=== PATIENT | female | born 1975 | race Caucasian/White ===

== ENCOUNTER 2018-01-11 12:02 | Inpatient (IN) ==
[2018-01-11] MEDS ORDERED: 0.9 % Sodium Chloride 1,000 ML IVC ONE (12:29)
[2018-01-11 12:38] LABS: Bilirubin,Urine Negative (Negative); Blood,Urine Large (Negative); Clarity,Urine Clear (Clear); Color,Urine Yellow (Yellow); Glucose,Urine (UA) Normal (Normal); Ketones,Urine Negative (Negative); Leukocyte Esterase,Urine Trace (Negative); Nitrite,Urine Negative (Negative); Protein,Urine Negative (Neg-Trace); Specific Gravity,Urine 1.006 (1.010-1.025); Urobilinogen,Urine Normal (Normal)
[2018-01-11 12:42] LABS: Bacteria,Urine None Seen per hpf (None-Few); Hyaline Casts,Urine None Seen per lpf (None-Few); RBC,Urine 15-30 per hpf (0-3); Squamous Epithelial Cell,Urine Moderate per lpf (None-Few)
[2018-01-11 12:51] LABS: Amphetamine Screen,Urine Negative ng/mL (Cutoff=1000); Barbiturate Screen,Urine Negative ng/mL (Cutoff=200); Benzodiazepines Screen,Urine Negative ng/mL (Cutoff=200); Cannabinoid Screen,Urine Negative ng/mL (Cutoff = 50); Cocaine Screen,Urine Negative ng/mL (Cutoff= 300); Opiate Screen,Urine Negative ng/mL (Cutoff=300); Phencyclidine Screen,Urine Negative ng/mL (Cutoff=25)
[2018-01-11 13:07] LABS: Basophils # 0.1 K/mcL (0.0-0.2); Basophils % 1.5 %; Eosinophils % 0.7 %; Hematocrit 47.2 % (35.3-44.9); Hemoglobin 15.5 g/dL (11.5-15.4); Immature Granulocytes % 0.5 % (0-4); Lymphocytes # 1.4 K/mcL (0.6-4.6); Lymphocytes % 33.3 %; Mean Corpuscular HGB Conc 32.8 g/dL (31.6-35.5); Mean Corpuscular Hemoglobin 30.5 pg (28.0-33.3); Mean Corpuscular Volume 92.9 fL (83.0-100.0); Mean Platelet Volume 10.1 fL (9.4-12.4); Monocytes # 0.3 K/mcL (0.0-1.3); Monocytes % 8.3 %; Neutrophils # 2.3 K/mcL (1.6-8.9); Platelet Count 281 K/mcL (140-400); Red Blood Count 5.08 M/mcL (3.82-4.97); Red Cell Distribution Width 12.9 % (11.5-14.5); Segmented Neutrophils % 55.7 %
[2018-01-11] MEDS ORDERED: Sodium Bicarbonate 150 MEQ in D5% in Water 1,000 ML IVC SCH ×2 (13:15→20:33)
[2018-01-11 13:24] LABS: Acetaminophen < 1.0 mcg/mL (10-30); Alanine Aminotransferase 14 Units/L (7-52); Albumin/Globulin Ratio 1.8 (1.1-2.2); Alkaline Phosphatase 48 Units/L (34-104); Aspartate Amino Transferase 19 Units/L (13-39); BUN/Creatinine Ratio 8 (6-26); Bilirubin,Direct 0.1 mg/dL (0.0-0.2); Bilirubin,Indirect 0.1 mg/dL (0.0-1.2); Bilirubin,Total 0.2 mg/dL (0.3-1.0); Blood Urea Nitrogen 8 mg/dL (6-20); Calcium 10.4 mg/dL (8.6-10.3); Carbon Dioxide 26 mEq/L (23-29); Chloride 106 mEq/L (98-107); Ethanol < 10 mg/dL (0-10); Globulin 2.8 g/dL (2.4-3.5); Glucose 108 mg/dL (70-105); Osmolality,Calculated 293 (280-300); Sodium 142 mEq/L (136-145); Total Protein 7.8 g/dL (6.4-8.9); eGFR For Non-African Americans 59 (> 60)
[2018-01-11 13:26] LABS: Salicylate 68.8 mg/dL (15.0-30.0)
[2018-01-11 14:21] LABS: ABG Base Excess -1 mEq/L (-2 to 3); ABG HCO3 23 mEq/L (21-27); ABG Oxygen Saturation 99 % (95-98); ABG PCO2 33 mmHg (35-45); ABG PH 7.45 pH Units (7.32-7.45); ABG PO2 122 mmHg (85-104); ABG TCO2 24 mEq/L (20-26)
[2018-01-11] MEDS ORDERED: *HR* Heparin 5,000 UNIT/ML VIAL ONE (14:30)
--- NOTE | 2018-01-11 14:33 | Emergency Department Note ---
Overdose - [facility] Narrative Medical decision making narrative: I spoke with poison control center after the initial evaluation recommended but activated charcoal. Salicylate level came back at 16.8 which is significantly elevated. Bicarbonate drip was initiated. Patient heart rate improved after IV fluids and then bicarbonate drip. ABG showed pH of 7.44. - Medical Records Medical records reviewed: Yes I reviewed the patient's medical records. - Lab Data Lab results reviewed: Yes I reviewed the patient's lab results. Result diagrams: 01/11/18 12:48 01/11/18 12:48 Lab Results 01/11/18 01/11/18 01/11/18 Range/Units 12:30 12:31 12:48 WBC 4.1 L (4.3-11.1) K/mcL RBC 5.08 H (3.82-4.97) M/mcL Hgb 15.5 H (11.5-15.4) g/dL Hct 47.2 H (35.3-44.9) % MCV 92.9 (83.0-100.0) fL MCH 30.5 (28.0-33.3) pg MCHC 32.8 (31.6-35.5) g/dL RDW 12.9 (11.5-14.5) % Plt Count 281 (140-400) K/mcL MPV 10.1 (9.4-12.4) fL Immature Gran % 0.5 (0-4) % Seg Neutrophils % 55.7 % Lymphocytes % 33.3 % Monocytes % 8.3 % Eosinophils % 0.7 % Basophils % 1.5 % Neutrophils # 2.3 (1.6-8.9) K/mcL Lymphocytes # 1.4 (0.6-4.6) K/mcL Monocytes # 0.3 (0.0-1.3) K/mcL Eosinophils # 0.0 (0.0-0.6) K/mcL Basophils # 0.1 (0.0-0.2) K/mcL ABG pH (7.32-7.45) pH Units ABG pCO2 (35-45) mmHg ABG pO2 (85-104) mmHg ABG HCO3 (21-27) mEq/L ABG Total CO2 (20-26) mEq/L ABG O2 Saturation (95-98) % ABG Base Excess (-2 to 3) mEq/L O2 Delivery Device Inspired O2 (1-15=lpm [id number]=%) Sodium (136-145) mEq/L Potassium (3.5-5.1) mEq/L Chloride (98-107) mEq/L Carbon Dioxide (23-29) mEq/L BUN (6-20) mg/dL Creatinine (0.60-1.20) mg/dL Est GFR ( Amer) (> 60) Est GFR (Non-Af Amer) (> 60) BUN/Creatinine Ratio (6-26) Glucose (70-105) mg/dL Calculated Osmolality (280-300) Lactic Acid (0.5-2.2) mmol/L Calcium (8.6-10.3) mg/dL Total Bilirubin (0.3-1.0) mg/dL Direct Bilirubin (0.0-0.2) mg/dL Indirect Bilirubin (0.0-1.2) mg/dL AST (13-39) Units/L ALT (7-52) Units/L Alkaline Phosphatase (34-104) Units/L Serum Total Protein (6.4-8.9) g/dL Albumin (3.5-5.7) g/dL Globulin (2.4-3.5) g/dL Albumin/Globulin Ratio (1.1-2.2) Urine Color Yellow (Yellow) Urine Clarity Clear (Clear) Urine pH 7.0 (5.0-8.0) pH Units Ur Specific [place] 1.006 L (1.010-1.025) Urine Protein Negative (Neg-Trace) mg/dL Urine Glucose (UA) Normal (Normal) mg/dL Urine Ketones Negative (Negative) mg/dL Urine Blood Large H (Negative) Urine Nitrite Negative (Negative) Urine Bilirubin Negative (Negative) Urine Urobilinogen Normal (Normal) mg/dL Ur Leukocyte Esterase Trace H (Negative) Urine Microscopic RBC 15-30 H (0-3) per hpf Urine Microscopic WBC 3-5 H (0-3) per hpf Ur Squamous Epith Cells Moderate H (None-Few) per lpf Urine Bacteria None Seen (None-Few) per hpf Hyaline Casts None Seen (None-Few) per lpf Salicylates (15.0-30.0) mg/dL Urine Opiates Screen Negative (Eavzsq=846) ng/mL Acetaminophen (10-30) mcg/mL Ur Barbiturates Screen Negative (Vqwkfa=307) ng/mL Ur Phencyclidine Scrn Negative (Cutoff=25) ng/mL Ur Amphetamines Screen Negative (Yqgpjy=8079) ng/mL U Benzodiazepines Scrn Negative (Umtaqh=347) ng/mL Urine Cocaine Screen Negative (Cutoff= 300) ng/mL U Marijuana (THC) Screen Negative (Cutoff = 50) ng/mL Ethyl Alcohol (0-10) mg/dL 01/11/18 01/11/18 01/11/18 Range/Units 12:48 12:48 14:17 WBC (4.3-11.1) K/mcL RBC (3.82-4.97) M/mcL Hgb (11.5-15.4) g/dL Hct (35.3-44.9) % MCV (83.0-100.0) fL MCH (28.0-33.3) pg MCHC (31.6-35.5) g/dL RDW (11.5-14.5) % Plt Count (140-400) K/mcL MPV (9.4-12.4) fL Immature Gran % (0-4) % Seg Neutrophils % % Lymphocytes % % Monocytes % % Eosinophils % % Basophils % % Neutrophils # (1.6-8.9) K/mcL Lymphocytes # (0.6-4.6) K/mcL Monocytes # (0.0-1.3) K/mcL Eosinophils # (0.0-0.6) K/mcL Basophils # (0.0-0.2) K/mcL ABG pH 7.45 (7.32-7.45) pH Units ABG pCO2 33 L (35-45) mmHg ABG pO2 122 H (85-104) mmHg ABG HCO3 23 (21-27) mEq/L ABG Total CO2 24 (20-26) mEq/L ABG O2 Saturation 99 H (95-98) % ABG Base Excess -1 (-2 to 3) mEq/L O2 Delivery Device Room Air Inspired O2 21.0 (1-15=lpm [id number]=%) Sodium 142 (136-145) mEq/L Potassium 4.0 (3.5-5.1) mEq/L Chloride 106 (98-107) mEq/L Carbon Dioxide 26 (23-29) mEq/L BUN 8 (6-20) mg/dL Creatinine 1.03 (0.60-1.20) mg/dL Est GFR ( Amer) > 60 (> 60) Est GFR (Non-Af Amer) 59 L (> 60) BUN/Creatinine Ratio 8 (6-26) Glucose 108 H (70-105) mg/dL Calculated Osmolality 293 (280-300) Lactic Acid 0.9 (0.5-2.2) mmol/L Calcium 10.4 H (8.6-10.3) mg/dL Total Bilirubin 0.2 L (0.3-1.0) mg/dL Direct Bilirubin 0.1 (0.0-0.2) mg/dL Indirect Bilirubin 0.1 (0.0-1.2) mg/dL AST 19 (13-39) Units/L ALT 14 (7-52) Units/L Alkaline Phosphatase 48 (34-104) Units/L Serum Total Protein 7.8 (6.4-8.9) g/dL Albumin 5.0 (3.5-5.7) g/dL Globulin 2.8 (2.4-3.5) g/dL Albumin/Globulin Ratio 1.8 (1.1-2.2) Urine Color (Yellow) Urine Clarity (Clear) Urine pH (5.0-8.0) pH Units Ur Specific [place] (1.010-1.025) Urine Protein (Neg-Trace) mg/dL Urine Glucose (UA) (Normal) mg/dL Urine Ketones (Negative) mg/dL Urine Blood (Negative) Urine Nitrite (Negative) Urine Bilirubin (Negative) Urine Urobilinogen (Normal) mg/dL Ur Leukocyte Esterase (Negative) Urine Microscopic RBC (0-3) per hpf Urine Microscopic WBC (0-3) per hpf Ur Squamous Epith Cells (None-Few) per lpf Urine Bacteria (None-Few) per hpf Hyaline Casts (None-Few) per lpf Salicylates 68.8 H* (15.0-30.0) mg/dL Urine Opiates Screen (Bfhwpx=694) ng/mL Acetaminophen < 1.0 L (10-30) mcg/mL Ur Barbiturates Screen (Scfcda=399) ng/mL Ur Phencyclidine Scrn (Cutoff=25) ng/mL Ur Amphetamines Screen (Nhcryk=6900) ng/mL U Benzodiazepines Scrn (Jhhvgo=586) ng/mL Urine Cocaine Screen (Cutoff= 300) ng/mL U Marijuana (THC) Screen (Cutoff = 50) ng/mL Ethyl Alcohol < 10 (0-10) mg/dL - Radiology Data Radiology results reviewed: Yes I reviewed the patient's radiology results. Overdose HPI - General Chief Complaint: ED Overdose Stated Complaint: OD Time Seen by Provider: 01/11/18 12:25 Source: patient, family Mode of arrival: ambulatory Limitations: no limitations Nursing Notes Reviewed: Yes Vital Signs Reviewed: Yes - History of Present Illness HPI Narrative: 42-year-old female presents emergency department after a suicide attempt. Patient states she is in the middle of a separation/divorce with her , she found tapes of him performing intercourse with a different female, she watch those this morning and became suicidal. She took 100 pills of 325 mg aspirin and 10 pills of Ambien at unknown strength. This occurred about 4 hours prior to arrival. Patient has tinnitus. She has tachycardia on initial evaluation. She has not vomited prior to arrival. Patient states it was a mistake and she was just caught up in the moment at the time. - Related Data Allergies Allergy/AdvReac Type Severity Reaction Status Date / Time No Known Allergies Allergy Verified 01/11/18 12:03 All systems ED: reviewed and negative except as stated. Review of Systems: As Per HPI Constitutional: Denies: fever, chills, weakness ENT ED: Reports: hearing loss Cardiovascular: Reports: palpitations. Denies: chest pain Respiratory: Denies: cough, dyspnea, wheezes Gastrointestinal: Reports: abdominal pain, nausea. Denies: vomiting Genitourinary: Denies: urgency Musculoskeletal: Denies: back pain Integumentary: Denies: rash, abrasion Neurological: Reports: headache. Denies: weakness Past Medical History - Past Medical History Attestation: Yes The following information was validated with the patient. Source: patient Medical history: Reports: no medical history Psychiatric history: Reports: depression - Social History Smoking Status: Never smoker Alcohol use: Reports: occasionally Drug use: Reports: none Physical Exam General: Alert and in no acute distress Skin: Warm, dry, intact Head: Normocephalic and atraumatic Neck: Supple, trachea midline and no tenderness Cardiovascular: Tachycardia, no murmur, normal perfusion Respiratory: CTAB, no wheezing, cough, or respiratory distress Musculoskeletal: Normal strength, no tenderness, swelling or deformity GI: Soft, mild generalized tenderness to palpation without evidence of rigidity , guarding, or rebound., nondistended. Bowel sounds present Neuro: A&O to person, place, time and situation. No focal deficits noted on exam Psychiatric: cooperative and appropriate mood and affect. - General Limitations: no limitations General appearance: alert Course Vital Signs Temperature 97.8 F 01/11/18 12:03 Pulse Rate 121 01/11/18 12:03 Respiratory Rate 16 01/11/18 12:03 Blood Pressure 140/91 01/11/18 12:03 O2 Sat by Pulse Oximetry 99 01/11/18 12:03 Temperature 97.8 F 01/11/18 12:03 Pulse Rate 105 01/11/18 14:00 Respiratory Rate 20 01/11/18 14:00 Blood Pressure 116/77 01/11/18 14:00 O2 Sat by Pulse Oximetry 100 01/11/18 14:00 Oxygen Delivery Oxygen Delivery Nasal Cannula Disposition Clinical Impression: Intentional aspirin overdose Qualifiers: Encounter type: initial encounter Qualified Code(s): T39.012A - Poisoning by aspirin, intentional self-harm, initial encounter Suicidal overdose Qualifiers: Encounter type: initial encounter Qualified Code(s): T50.902A - Poisoning by unspecified drugs, medicaments and biological substances, intentional self-harm , initial encounter Disposition: Admitted As Inpatient Referrals: Sukhwinder Loco DO [Primary Care Provider] - Time of Disposition: 13:00
--- NOTE | 2018-01-11 15:15 | Nephrology Consult Note ---
Date of Encounter: 01/11/18 Time of Encounter: 15:13 Assessment and Plan (1) Intentional aspirin overdose Current Visit: Yes Status: Acute ED team working with Poison Control Will need urgent dialysis if salicylate level goes above 80. Recommend frequent salicylate/BMPs such as every 2 hours or as recommended by Poison Control center Qualifiers: Encounter type: initial encounter Qualified Code(s): T39.012A - Poisoning by aspirin, intentional self-harm, initial encounter History of Present Illness - Reason for Consult Consult date: 01/11/18 - Chief Complaint ASA overdose, suicide attempt - History of Present Illness Ms Ken is a 42-year-old female who presents emergency department after a suicide attempt. Per ED record patient states she is in the middle of a separation/divorce with her , she found tapes of him performing intercourse with a different female, she watch those this morning and became suicidal. She took 100 pills of 325 mg aspirin and 10 pills of Ambien at unknown strength. This occurred about 4 hours prior to arrival. Patient has tinnitus. She has tachycardia on initial evaluation. She has not vomited prior to arrival. Patient states it was a mistake and she was just caught up in the moment at the time. Salicylate level 68.8, SCr 1.03, GFR 59. Patient was seen and examined in the ED. She is AAO and pleasant. Past Med Surg Social Fam HX - Past Medical History Medical history: no medical history Psychiatric history: depression - Social History Smoking Status: Never smoker Alcohol use: occasionally Drug use: none Medications and Allergies Metformin HCl [Metformin HCl ER] 500 mg PO QPM 01/11/18 [History] Naltrexone HCl/Bupropion HCl [Contrave ER 8-90 mg Tablet] 1 each PO DAILY [History] Sertraline [Zoloft] 50 mg PO DAILY 01/11/18 [History] Suvorexant [Belsomra] 20 mg PO HS 01/11/18 [History] Tizanidine HCl [Tizanidine HCl] 4 mg PO TID PRN 01/11/18 [History] 3 Allergy/AdvReac Type Severity Reaction Status Date / Time No Known Allergies Allergy Verified 01/11/18 12:03 Review of Systems All Systems: reviewed and no additional remarkable complaints except as stated Constitutional: no fever(s) Cardiovascular: rapid heart rate, no chest pain, no dyspnea Respiratory: no wheezing Gastrointestinal: no vomiting Neurological: no confusion Exam - Vital Signs Vital signs: Initial Vital Signs Temp Pulse Resp BP Pulse Ox 97.8 F 121 16 140/91 99 01/11/18 12:03 01/11/18 12:03 01/11/18 12:03 01/11/18 12:03 01/11/18 12:03 Vital Signs - Last 8 Hours Temp Pulse Resp BP Pulse Ox 01/11/18 14:00 105 20 116/77 100 01/11/18 13:15 116 22 126/90 98 01/11/18 13:07 98 01/11/18 12:50 115 22 120/88 97 01/11/18 12:03 97.8 F 121 16 140/91 99 Intake and Output 01/10/18 01/11/18 01/11/18 23:59 07:59 15:59 Intake Total 1000 / 1000 Balance 1000 / 1000 Intake: IV Fluids 1000 / 1000 0.9 % Sodium Chloride 1,000 ML 1000 / 1000 @ 3750 mls/hr IVC .Q16M ONE Rx# :[id number] Other: Weight 52.163 kg Patient Weight 01/11/18 23:59 Weight 52.163 kg - General Appearance General appearance: well-developed, well-nourished EENT: ATNC, mucous membranes moist, hearing intact, vision intact Neck: supple Respiratory: clear Cardiology: no edema, normal S1, normal S2 Gastrointestinal: no tenderness, no guarding Integumentary: warm and dry Neurologic: alert and oriented x3 Psychiatric: mood/affect appropriate, cooperative Results - Lab Results 01/11/18 12:48 01/11/18 12:48 Most recent lab results ABG pH 7.45 pH Units (7.32-7.45) 01/11/18 14:17 ABG pCO2 33 mmHg (35-45) L 01/11/18 14:17 ABG pO2 122 mmHg (85-104) H 01/11/18 14:17 ABG HCO3 23 mEq/L (21-27) 01/11/18 14:17 ABG O2 Saturation 99 % (95-98) H 01/11/18 14:17 Calcium 10.4 mg/dL (8.6-10.3) H 01/11/18 12:48 Consult Discharge Plan - Plan Referrals: Sukhwinder Loco DO [Primary Care Provider] -
--- NOTE | 2018-01-11 15:49 | Internal Med History&Physical ---
Date of Encounter: 01/11/18 Time of Encounter: 15:45 Assessment and Plan (1) Depression Current visit: Yes Status: Chronic Chronic resume home medication Qualifiers: Depression Type: major depressive disorder Major depression recurrence: single episode Active/Remission status: remission status unspecified Qualified Code(s): F32.9 - Major depressive disorder, single episode, unspecified (2) Intentional aspirin overdose Current visit: Yes Status: Acute Aspirin overdose with intention of suicide patient had been seen and being followed by nephrology aspirin level PRESENT at 68 patient is awake alert ABG is normal Qualifiers: Encounter type: initial encounter Qualified Code(s): T39.012A - Poisoning by aspirin, intentional self-harm, initial encounter (3) Suicidal behavior with attempted self-injury Current visit: Yes Status: Acute We will consult psych electively see patient after medically cleared Internal Medicine - H&P: HPI Chief complaint: sapirin overdose/suicide attempt Admitted From: Emergency Dept Plans for Post Hospital Care: Home History of present illness: Ms. Ken is a 42 year old female Patient with history of depression no other significant medical problems patient apparently going through a divorce and separation from the . Apparently found some tapes involving her and another woman decided to commit suicide , took 100 pills of aspirin 325 and 10.pills of ambien . About 4 hours later come to the emergency room. Patient was having some ringing in her ears she is awake and alert aspirin level is 68 which is twice the upper limit of normal nephrology has been consult patient has a central line placed in anticipation of ASA increased elevation Past Med Surg Social Fam HX - Past Medical History Medical history: no medical history Psychiatric history: depression - Social History Smoking Status: Never smoker Alcohol use: occasionally Drug use: none Internal Medicine - H&P: Meds Metformin HCl [Metformin HCl ER] 500 mg PO QPM 01/11/18 [History] Naltrexone HCl/Bupropion HCl [Contrave ER 8-90 mg Tablet] 1 each PO DAILY [History] Sertraline [Zoloft] 50 mg PO DAILY 01/11/18 [History] Suvorexant [Belsomra] 20 mg PO HS 01/11/18 [History] Tizanidine HCl [Tizanidine HCl] 4 mg PO TID PRN 01/11/18 [History] 3 Allergy/AdvReac Type Severity Reaction Status Date / Time No Known Allergies Allergy Verified 01/11/18 12:03 All Systems PM: A 10-system review of systems was performed and is negative for pertinent findings except as documented above in the HPI. - Constitutional Constitutional: no chills, no fever(s), no night sweats - EENT Eyes: no change in vision, no discharge, no pain, no photophobia Ears: as per HPI, tinnitus, no ear discharge, no ear pain Nose, mouth and throat: no dysphagia, no nasal discharge, no neck pain, no sore throat - Cardiovascular Cardiovascular ROS IM: no chest pain, no diaphoresis, no dyspnea, no lightheadedness, no palpitations, no syncope - Respiratory Respiratory: no cough, no dyspnea, no wheezing, no excessive phlegm production - Gastrointestinal Gastrointestinal: no abdominal pain, no diarrhea, no hematemesis, no hematochezia, no melena, no nausea, no vomiting - Genitourinary Genitourinary: no change in urinary stream, no dysuria, no flank pain, no hematuria - Musculoskeletal Musculoskeletal ROS IM: no numbness, no tingling - Integumentary Integumentary IM: no rash, no unusual bruising - Neurological Neurological ROS: no confusion, no convulsions, no focal weakness, no numbness, no tingling, no tremor(s) - Constitutional Vitals: Temp Pulse Resp BP Pulse Ox 97.8 F 107 20 103/81 97 01/11/18 12:03 01/11/18 15:31 01/11/18 15:31 01/11/18 15:31 01/11/18 15:31 - Head Head exam: Present: atraumatic, normocephalic - Eye Eye exam: Present: PERRL, conjuntiva pink, sclera anicteric Pupils: Present: PERRL - Neck Neck exam general surgery: Present: supple, trachea midline. Absent: lymphadenopathy - Respiratory Respiratory exam: Present: CTAB. Absent: accessory muscle use, rales, rhonchi, wheezes - Cardiovascular Cardiovascular exam: Present: RRR, +S1, +S2. Absent: diastolic murmur, gallop, rubs, systolic murmur - GI/Abdominal GI/Abdominal exam: Present: normal bowel sounds, soft, no peritoneal signs. Absent: distended, tenderness - Extremities Exam Extremities exam: Present: warm, radial pulses palpable and symmetrical. Absent : calf tenderness, cyanotic, pedal edema - Neurological Exam Neurological exam: Present: CN II-XII intact, oriented X3, no focal deficits. Absent: pronater drift, facial droop, speech deficit - Skin Skin exam: Present: dry, intact Internal Med - H&P Results - Labs CBC & Chem 7: 01/11/18 12:48 01/11/18 12:48 Labs: Short CBC 01/11/18 Range/Units 12:48 WBC 4.1 L (4.3-11.1) K/mcL Hgb 15.5 H (11.5-15.4) g/dL Hct 47.2 H (35.3-44.9) % Plt Count 281 (140-400) K/mcL Neutrophils # 2.3 (1.6-8.9) K/mcL BMP 01/11/18 12:48 Sodium 142 Potassium 4.0 Chloride 106 Carbon Dioxide 26 BUN 8 Creatinine 1.03 Glucose 108 H Calcium 10.4 H Liver Function 01/11/18 Range/Units 12:48 Total Bilirubin 0.2 L (0.3-1.0) mg/dL Direct Bilirubin 0.1 (0.0-0.2) mg/dL AST 19 (13-39) Units/L ALT 14 (7-52) Units/L Alkaline Phosphatase 48 (34-104) Units/L Albumin 5.0 (3.5-5.7) g/dL Urine 01/11/18 Range/Units 12:30 Urine Color Yellow (Yellow) Urine Clarity Clear (Clear) Urine pH 7.0 (5.0-8.0) pH Units Ur Specific [place] 1.006 L (1.010-1.025) Urine Protein Negative (Neg-Trace) mg/dL Urine Glucose (UA) Normal (Normal) mg/dL - ABG Interpretation ABG results: 01/11/18 14:17 ABG pH 7.45 ABG pCO2 33 L ABG pO2 122 H ABG HCO3 23 ABG Total CO2 24 ABG O2 Saturation 99 H ABG Base Excess -1 - Impressions ITS Impressions Guidance Needle Placement Ultrasound 01/11/18 00:00 IMPRESSION: Successful ultrasound guided non-tunneled catheter placement. D/ / Siddharth Barrett MD / Siddharth Barrett MD Interpreting Provider: Siddharth Barrett MD Insertion Non-Tunneled Catheter 01/11/18 00:00 IMPRESSION: This has been dictated D/ / Siddharth Barrett MD / Siddharth Barrett MD Interpreting Provider: Siddharth Barrett MD Chest X-Ray 01/11/18 12:29 IMPRESSION: 1. No acute cardiopulmonary disease. D/ / Wan Childs MD / Wan Childs MD Interpreting Provider: Wan Childs MD Chest X-Ray 01/11/18 14:35 IMPRESSION: No radiographic evidence of acute cardiopulmonary disease. Unremarkable temporary HD catheter positioning. No pneumothorax. D/ / Stone Noriega / Stone Noriega Interpreting Provider: Stone Noriega
[2018-01-11] MEDS ORDERED: Naloxone 0.4 MG/ML INJ IVP PRN (16:00)
[2018-01-11 17:14] LABS: BUN/Creatinine Ratio 8 (6-26); Blood Urea Nitrogen 8 mg/dL (6-20); Calcium 8.9 mg/dL (8.6-10.3); Carbon Dioxide 22 mEq/L (23-29); Chloride 110 mEq/L (98-107); Glucose 147 mg/dL (70-105); Osmolality,Calculated 299 (280-300); Potassium 3.9 mEq/L (3.5-5.1); Sodium 144 mEq/L (136-145); eGFR For Non-African Americans 60 (> 60)
[2018-01-11] MEDS: Ondansetron 4 MG/2 ML VIAL IVP SCH (22:54)
[2018-01-12] MEDS ORDERED: Ondansetron 4 MG/2 ML VIAL IVP SCH
[2018-01-12] MEDS: *HR* Enoxaparin 40 MG/0.4 ML SYRINGE SQ SCH (04:38)
[2018-01-12] MEDS: Ondansetron 4 MG/2 ML VIAL IVP SCH ×5 (04:38→21:34)
[2018-01-12] MEDS: Sodium Bicarbonate 150 MEQ in D5% in Water 1,000 ML IVC SCH ×3 (06:27→18:34)
[2018-01-12 06:48] LABS: Hematocrit 36.1 % (35.3-44.9); Mean Corpuscular HGB Conc 33.2 g/dL (31.6-35.5); Mean Corpuscular Hemoglobin 30.2 pg (28.0-33.3); Mean Corpuscular Volume 90.9 fL (83.0-100.0); Mean Platelet Volume 10.7 fL (9.4-12.4); Platelet Count 227 K/mcL (140-400); Red Blood Count 3.97 M/mcL (3.82-4.97)
[2018-01-12 09:24] LABS: Alanine Aminotransferase 17 Units/L (7-52); Albumin 3.7 g/dL (3.5-5.7); Albumin/Globulin Ratio 1.9 (1.1-2.2); Alkaline Phosphatase 35 Units/L (34-104); Aspartate Amino Transferase 22 Units/L (13-39); BUN/Creatinine Ratio 11 (6-26); Bilirubin,Total 0.2 mg/dL (0.3-1.0); Blood Urea Nitrogen 11 mg/dL (6-20); Calcium 8.1 mg/dL (8.6-10.3); Carbon Dioxide 30 mEq/L (23-29); Chloride 102 mEq/L (98-107); Glucose 112 mg/dL (70-105); Osmolality,Calculated 288 (280-300); Potassium 2.6 mEq/L (3.5-5.1); Sodium 139 mEq/L (136-145); Total Protein 5.7 g/dL (6.4-8.9); eGFR For Non-African Americans > 60 (> 60)
--- NOTE | 2018-01-12 11:12 | Internal Med Progress Note ---
Date of Encounter: 01/12/18 Time of Encounter: 11:09 - Assessment and plan (1) Intentional aspirin overdose Current Visit: Yes Status: Acute Assessment and plan: Currently stable Most recent salycilate level 31.5 - Per protocol: repeat Salycilate level, serial BMP, urine pH repeat. - Continue sodium bicarb drip - Nephrology following, recommendations appreciated. Qualifiers: Encounter type: initial encounter Qualified Code(s): T39.012A - Poisoning by aspirin, intentional self-harm, initial encounter (2) Hypokalemia Current Visit: Yes Status: Acute Assessment and plan: Replace (3) Depression Current Visit: Yes Status: Chronic Qualifiers: Depression Type: major depressive disorder Major depression recurrence: single episode Active/Remission status: remission status unspecified Qualified Code(s): F32.9 - Major depressive disorder, single episode, unspecified (4) Suicidal overdose Current Visit: Yes Status: Acute Assessment and plan: Psychiatry following. Discussed case with Psychiatry attending. Patient likely will be discharged to once medically stable. Likely this evening or tomorrow AM. I would like to see potassium increased prior to transfer. Qualifiers: Encounter type: initial encounter Qualified Code(s): T50.902A - Poisoning by unspecified drugs, medicaments and biological substances, intentional self- harm, initial encounter - Subjective Interval history: No events overnight, no complaints. - Constitutional Vitals: Temp Pulse Resp BP Pulse Ox 97.8 F 87 14 99/68 99 01/12/18 07:45 01/12/18 07:45 01/12/18 07:45 01/12/18 07:45 01/12/18 07:45 - Head Head exam: Present: atraumatic, normocephalic - Eye Eye exam: Present: PERRL, conjuntiva pink, sclera anicteric Pupils: Present: PERRL - Neck Neck exam general surgery: Present: supple, trachea midline. Absent: lymphadenopathy - Respiratory Respiratory exam: Present: CTAB. Absent: accessory muscle use, rales, rhonchi, wheezes - Cardiovascular Cardiovascular exam: Present: RRR, +S1, +S2. Absent: diastolic murmur, gallop, rubs, systolic murmur - GI/Abdominal GI/Abdominal exam: Present: normal bowel sounds, soft, no peritoneal signs. Absent: distended, tenderness - Extremities Exam Extremities exam: Present: warm, radial pulses palpable and symmetrical. Absent : calf tenderness, cyanotic, pedal edema - Neurological Exam Neurological exam: Present: CN II-XII intact, oriented X3, no focal deficits. Absent: pronater drift, facial droop, speech deficit - Skin Skin exam: Present: dry, intact Internal Medicine: Result - Labs CBC & Chem 7: 01/12/18 06:02 01/12/18 06:02 Labs: Short CBC 01/12/18 Range/Units 06:02 WBC 8.3 D (4.3-11.1) K/mcL Hgb 12.0 D (11.5-15.4) g/dL Hct 36.1 (35.3-44.9) % Plt Count 227 (140-400) K/mcL BMP 01/11/18 01/12/18 22:59 06:02 Sodium 139 Potassium 3.4 L 2.6 L Chloride 102 Carbon Dioxide 30 H BUN 11 Creatinine 1.01 Glucose 112 H Calcium 8.1 L Liver Function 01/12/18 Range/Units 06:02 Total Bilirubin 0.2 L (0.3-1.0) mg/dL AST 22 (13-39) Units/L ALT 17 (7-52) Units/L Alkaline Phosphatase 35 (34-104) Units/L Albumin 3.7 (3.5-5.7) g/dL - ABG Interpretation ABG results: ABG ABG pH 7.45 pH Units (7.32-7.45) 01/11/18 14:17 ABG pCO2 33 mmHg (35-45) L 01/11/18 14:17 ABG pO2 122 mmHg (85-104) H 01/11/18 14:17 ABG O2 Saturation 99 % (95-98) H 01/11/18 14:17 Consult Discharge Plan - Plan Referrals: Sukhwinder Loco DO [Primary Care Provider] -
--- NOTE | 2018-01-12 11:39 | Consult Note ---
Date of Encounter: 01/12/18 Time of Encounter: 10:10 Assessment & Recommendation (1) Depression Current visit: Yes Status: Chronic Assessment & Recommendation: Patient admits to it intentionally taking pills but minimizes lethality of attempt. [place] slip filled out. Family very concerned about patient's behavior and possibility of her hurting herself again. We will admit to 1 a for psychiatric stabilization once medically stable. Continue one-to-one observation until patient is transferred. Qualifiers: Depression Type: major depressive disorder Major depression recurrence: single episode Active/Remission status: remission status unspecified Qualified Code(s): F32.9 - Major depressive disorder, single episode, unspecified (2) Intentional aspirin overdose Current visit: Yes Status: Acute Qualifiers: Encounter type: initial encounter Qualified Code(s): T39.012A - Poisoning by aspirin, intentional self-harm, initial encounter History of Present Illness Patient: new to practice Requesting Physician: Irasema Frederick MD Reason for consult: Suicide attempt History of present illness: Ms. Ken is a 42 year old female who presented to the hospital after an intentional overdose on medications after an argument with her . On interview, patient is very embarrassed and upset about her actions. She states that she and her were and are trying to work on the relationship however she is also planning to proceed with the dissolution of their marriage to start with a "clean slate." While she was cleaning out the house she found the phone that her use to communicate with his mistress. She apparently spent time trying to figure out how to return videos and data images that have been deleted. She watched videos of her with his lover. This caused her to be very emotionally distraught and upset and she got into an argument with her . She refused to go to marriage counseling. At some point she decided to take pills. Patient denied this being a suicide attempt and states that she just wanted to take enough medication to "sleep it off." She initially denies depressed mood but then admits to taking Zoloft and Wellbutrin for about 20 years. She thinks her medications are helpful to her stress level has been increased lately because of her marital issues. Patient states she is willing to go to counseling and would prefer not to be hospitalized. She denies history of psychosis or manic symptoms. PCP is prescribing her current psych meds. She denies tobacco or illicit drug use and only very rarely uses alcohol. 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 Spoke with patient's family who states that patient is minimizing her recent overdose. Both her and her sister and mom report that she verbalized suicidal ideation to them over the past few weeks. They are concerned that if she was to leave the hospital she may in fact try to hurt herself again. They really want her to get help and her concern that she will follow up with a therapist or doctor when she leaves the hospital. CC: Irasema Frederick MD Past Med Surg Social Fam HX - Past Medical History Medical history: no medical history - Past Psychiatric History Psychiatric history: Reports: anxiety, depression. Denies: prior suicide attempt, previous psychiatric hospitalization Past psychiatric history details: On Wellbutrin and Zoloft for a long time. Family psychiatric history: Yes (Sr. also has anxiety issues.) Family History of Suicide: None - Social History Smoking Status: Never smoker Alcohol use: occasionally Drug use: none Occupational status: employed Current living situation: Home, With Family - Family History Father Living Status: Still Living Hx Family Cardiac Disorders: Yes (HTN,) Medications & Allergies Metformin HCl [Metformin HCl ER] 500 mg PO QPM 01/11/18 [History] Naltrexone HCl/Bupropion HCl [Contrave ER 8-90 mg Tablet] 1 each PO DAILY [History] Sertraline [Zoloft] 50 mg PO DAILY 01/11/18 [History] Suvorexant [Belsomra] 20 mg PO HS 01/11/18 [History] Tizanidine HCl [Tizanidine HCl] 4 mg PO TID PRN 01/11/18 [History] 3 Allergy/AdvReac Type Severity Reaction Status Date / Time No Known Allergies Allergy Verified 01/11/18 12:03 Review of Systems Constitutional: Denies: fever, chills, weakness, weight change Eyes: Denies: eye pain, vision change Ears, Nose, Throat: Denies: ear pain, throat pain, dental pain, hearing loss, congestion Cardiovascular: Denies: chest pain, palpitations, dyspnea on exertion Respiratory: Denies: cough, dyspnea, wheezes Gastrointestinal: Denies: abdominal pain, nausea, vomiting, diarrhea, constipation Genitourinary male: Denies: urgency, dysuria, frequency, genital lesions Genitourinary female: Denies: urgency, dysuria, frequency, abnormal menses, dyspareunia Musculoskeletal: Denies: joint swelling, joint pain Integumentary: Denies: rash, lesions, pruritus Neurological: Denies: headache, weakness, numbness, memory loss Psychiatric: Reports: depression, anxiety, abnormal sleep pattern, suicidal ideation, anhedonia, difficulty concentrating, hopelessness, irritability, mood swings, panic attacks Endocrine: Denies: fatigue, heat or cold intolerance Hematologic/Lymphatic: Denies: easy bruising, lymphadenopathy Allergic/Immunologic: Denies: urticaria, itchy eyes Mental Status Exam Patient orientation: Yes Person, Yes Time, Yes Place Level of alertness: Alert Patient appearance: Appropriate Behavior: calm, guarded Psychomotor activity: Normal Eye contact: Minimal Contact Mood description: Euthymic/stable Affect description: tearful, dysphoric Speech pattern: Normal rate, Normal rhythm, Normal tone Speech volume: Normal Thought process: Intact, Linear, Goal Oriented Thought content: No Suicidal ideation, No Homicidal ideation Perceptual disturbances: No Auditory hallucinations, No Visual hallucinations Attention span: Capable of Focused Attention Memory description: Grossly Intact Patient reliability: Questionable Historian Intelligence estimate: Average Judgment: Limited Insight: Minimal Results - Vital Signs Vital signs: Temp Pulse Resp BP Pulse Ox 97.8 F 87 14 99/68 99 01/12/18 07:45 01/12/18 07:45 01/12/18 07:45 01/12/18 07:45 01/12/18 07:45 - Labs Labs: Laboratory Last Values WBC 8.3 K/mcL (4.3-11.1) D 01/12/18 06:02 RBC 3.97 M/mcL (3.82-4.97) 01/12/18 06:02 Hgb 12.0 g/dL (11.5-15.4) D 01/12/18 06:02 Hct 36.1 % (35.3-44.9) 01/12/18 06:02 MCV 90.9 fL (83.0-100.0) 01/12/18 06:02 MCH 30.2 pg (28.0-33.3) 01/12/18 06:02 MCHC 33.2 g/dL (31.6-35.5) 01/12/18 06:02 RDW 13.0 % (11.5-14.5) 01/12/18 06:02 Plt Count 227 K/mcL (140-400) 01/12/18 06:02 MPV 10.7 fL (9.4-12.4) 01/12/18 06:02 Immature Gran % 0.5 % (0-4) 01/11/18 12:48 Seg Neutrophils % 55.7 % 01/11/18 12:48 Lymphocytes % 33.3 % 01/11/18 12:48 Monocytes % 8.3 % 01/11/18 12:48 Eosinophils % 0.7 % 01/11/18 12:48 Basophils % 1.5 % 01/11/18 12:48 Neutrophils # 2.3 K/mcL (1.6-8.9) 01/11/18 12:48 Lymphocytes # 1.4 K/mcL (0.6-4.6) 01/11/18 12:48 Monocytes # 0.3 K/mcL (0.0-1.3) 01/11/18 12:48 Eosinophils # 0.0 K/mcL (0.0-0.6) 01/11/18 12:48 Basophils # 0.1 K/mcL (0.0-0.2) 01/11/18 12:48 ABG pH 7.45 pH Units (7.32-7.45) 01/11/18 14:17 ABG pCO2 33 mmHg (35-45) L 01/11/18 14:17 ABG pO2 122 mmHg (85-104) H 01/11/18 14:17 ABG HCO3 23 mEq/L (21-27) 01/11/18 14:17 ABG Total CO2 24 mEq/L (20-26) 01/11/18 14:17 ABG O2 Saturation 99 % (95-98) H 01/11/18 14:17 ABG Base Excess -1 mEq/L (-2 to 3) 01/11/18 14:17 O2 Delivery Device Room Air 01/11/18 14:17 Inspired O2 21.0 (1-15=lpm [id number]%) 01/11/18 14:17 Sodium 139 mEq/L (136-145) 01/12/18 06:02 Potassium 2.6 mEq/L (3.5-5.1) L 01/12/18 06:02 Chloride 102 mEq/L (98-107) 01/12/18 06:02 Carbon Dioxide 30 mEq/L (23-29) H 01/12/18 06:02 BUN 11 mg/dL (6-20) 01/12/18 06:02 Creatinine 1.01 mg/dL (0.60-1.20) 01/12/18 06:02 Est GFR ( Amer) > 60 (> 60) 01/12/18 06:02 Est GFR (Non-Af Amer) > 60 (> 60) 01/12/18 06:02 BUN/Creatinine Ratio 11 (6-26) 01/12/18 06:02 Glucose 112 mg/dL (70-105) H 01/12/18 06:02 POC Glucose 122 (58-89) H 01/11/18 21:41 Calculated Osmolality 288 (280-300) 01/12/18 06:02 Lactic Acid 0.9 mmol/L (0.5-2.2) 01/11/18 12:48 Calcium 8.1 mg/dL (8.6-10.3) L 01/12/18 06:02 Total Bilirubin 0.2 mg/dL (0.3-1.0) L 01/12/18 06:02 Direct Bilirubin 0.1 mg/dL (0.0-0.2) 01/11/18 12:48 Indirect Bilirubin 0.1 mg/dL (0.0-1.2) 01/11/18 12:48 AST 22 Units/L (13-39) 01/12/18 06:02 ALT 17 Units/L (7-52) 01/12/18 06:02 Alkaline Phosphatase 35 Units/L (34-104) 01/12/18 06:02 Serum Total Protein 5.7 g/dL (6.4-8.9) L 01/12/18 06:02 Albumin 3.7 g/dL (3.5-5.7) 01/12/18 06:02 Globulin 2.0 g/dL (2.4-3.5) L 01/12/18 06:02 Albumin/Globulin Ratio 1.9 (1.1-2.2) 01/12/18 06:02 Urine Color Yellow (Yellow) 01/11/18 12:30 Urine Clarity Clear (Clear) 01/11/18 12:30 Urine pH 7.0 pH Units (5.0-8.0) 01/11/18 12:30 Ur Specific [place] 1.006 (1.010-1.025) L 01/11/18 12:30 Urine Protein Negative mg/dL (Neg-Trace) 01/11/18 12:30 Urine Glucose (UA) Normal mg/dL (Normal) 01/11/18 12:30 Urine Ketones Negative mg/dL (Negative) 01/11/18 12:30 Urine Blood Large (Negative) H 01/11/18 12:30 Urine Nitrite Negative (Negative) 01/11/18 12:30 Urine Bilirubin Negative (Negative) 01/11/18 12:30 Urine Urobilinogen Normal mg/dL (Normal) 01/11/18 12:30 Ur Leukocyte Esterase Trace (Negative) H 01/11/18 12:30 Urine Microscopic RBC 15-30 per hpf (0-3) H 01/11/18 12:30 Urine Microscopic WBC 3-5 per hpf (0-3) H 01/11/18 12:30 Ur Squamous Epith Cells Moderate per lpf (None-Few) H 01/11/18 12:30 Urine Bacteria None Seen per hpf (None-Few) 01/11/18 12:30 Hyaline Casts None Seen per lpf (None-Few) 01/11/18 12:30 Urine Test Negative (Negative) 01/12/18 10:20 Salicylates 31.5 mg/dL (15.0-30.0) H* 01/12/18 06:02 Urine Opiates Screen Negative ng/mL (Ojnxvt=489) 01/11/18 12:31 Acetaminophen < 1.0 mcg/mL (10-30) L 01/11/18 12:48 Ur Barbiturates Screen Negative ng/mL (Tddxyh=568) 01/11/18 12:31 Ur Phencyclidine Scrn Negative ng/mL (Cutoff=25) 01/11/18 12:31 Ur Amphetamines Screen Negative ng/mL (Rmywon=4729) 01/11/18 12:31 U Benzodiazepines Scrn Negative ng/mL (Jnjwyy=207) 01/11/18 12:31 Urine Cocaine Screen Negative ng/mL (Cutoff= 300) 01/11/18 12:31 U Marijuana (THC) Screen Negative ng/mL (Cutoff = 50) 01/11/18 12:31 Ethyl Alcohol < 10 mg/dL (0-10) 01/11/18 12:48 Consult Discharge Plan - Plan Referrals: Sukhwinder Loco DO [Primary Care Provider] -
[2018-01-12 12:41] LABS: Bilirubin,Urine Negative (Negative); Blood,Urine Negative (Negative); Clarity,Urine Clear (Clear); Color,Urine Yellow (Yellow); Glucose,Urine (UA) 100 mg/dL (Normal); Ketones,Urine Negative (Negative); Leukocyte Esterase,Urine Negative (Negative); Nitrite,Urine Negative (Negative); PH,Urine 8.5 pH Units (5.0-8.0); Protein,Urine 30 mg/dL (Neg-Trace); Specific Gravity,Urine < 1.005 (1.010-1.025); Urobilinogen,Urine Normal (Normal)
[2018-01-12 12:44] LABS: Bacteria,Urine None Seen per hpf (None-Few); Hyaline Casts,Urine None Seen per lpf (None-Few); RBC,Urine 0-3 per hpf (0-3); Squamous Epithelial Cell,Urine Many per lpf (None-Few)
[2018-01-12 12:44] LABS: Bilirubin,Urine Negative (Negative); Blood,Urine Negative (Negative); Clarity,Urine Clear (Clear); Color,Urine Yellow (Yellow); Glucose,Urine (UA) 100 mg/dL (Normal); Ketones,Urine Negative (Negative); Leukocyte Esterase,Urine Trace (Negative); Nitrite,Urine Negative (Negative); Protein,Urine 30 mg/dL (Neg-Trace); Specific Gravity,Urine < 1.005 (1.010-1.025); Urobilinogen,Urine Normal (Normal)
[2018-01-12 12:45] LABS: Bacteria,Urine None Seen per hpf (None-Few); Hyaline Casts,Urine None Seen per lpf (None-Few); RBC,Urine 0-3 per hpf (0-3)
[2018-01-12 13:08] LABS: Squamous Epithelial Cell,Urine Few per lpf (None-Few)
[2018-01-12 13:09] LABS: WBC,Urine 0-3 per hpf (0-3)
[2018-01-12] MEDS ORDERED: Promethazine 12.5 MG in 0.9 % Sodium Chloride 50 ML IVPB ONE (13:38)
[2018-01-12] MEDS ORDERED: *HR* Promethazine 25 MG/ML VIAL ONE (13:41)
[2018-01-12 13:43] LABS: Bilirubin,Urine Negative (Negative); Blood,Urine Negative (Negative); Clarity,Urine Clear (Clear); Color,Urine Yellow (Yellow); Glucose,Urine (UA) 100 mg/dL (Normal); Ketones,Urine Negative (Negative); Leukocyte Esterase,Urine Negative (Negative); Nitrite,Urine Negative (Negative); PH,Urine 8.5 pH Units (5.0-8.0); Protein,Urine 100 mg/dL (Neg-Trace); Specific Gravity,Urine 1.009 (1.010-1.025); Urobilinogen,Urine Normal (Normal)
[2018-01-12 13:46] LABS: Bacteria,Urine None Seen per hpf (None-Few); Hyaline Casts,Urine None Seen per lpf (None-Few); RBC,Urine 0-3 per hpf (0-3); Squamous Epithelial Cell,Urine Many per lpf (None-Few); WBC,Urine 0-3 per hpf (0-3)
[2018-01-12] MEDS: *HR* Promethazine 25 MG/ML VIAL IVP PRN (14:22)
[2018-01-12] MEDS: tiZANidine 4 MG TABLET PO PRN (14:25)
[2018-01-12 15:46] LABS: Bilirubin,Urine Negative (Negative); Blood,Urine Negative (Negative); Clarity,Urine Clear (Clear); Color,Urine Yellow (Yellow); Glucose,Urine (UA) 100 mg/dL (Normal); Ketones,Urine Negative (Negative); Leukocyte Esterase,Urine Small (Negative); Nitrite,Urine Negative (Negative); PH,Urine 8.5 pH Units (5.0-8.0); Protein,Urine 100 mg/dL (Neg-Trace); Specific Gravity,Urine < 1.005 (1.010-1.025); Urobilinogen,Urine Normal (Normal)
[2018-01-12 15:48] LABS: Bacteria,Urine Few per hpf (None-Few); Hyaline Casts,Urine None Seen per lpf (None-Few); RBC,Urine 0-3 per hpf (0-3); Squamous Epithelial Cell,Urine Many per lpf (None-Few)
[2018-01-12 17:40] LABS: BUN/Creatinine Ratio 7 (6-26); Blood Urea Nitrogen 6 mg/dL (6-20); Calcium 8.5 mg/dL (8.6-10.3); Carbon Dioxide 33 mEq/L (23-29); Chloride 101 mEq/L (98-107); Glucose 151 mg/dL (70-105); Osmolality,Calculated 285 (280-300); Potassium 2.9 mEq/L (3.5-5.1); Sodium 137 mEq/L (136-145); eGFR For Non-African Americans > 60 (> 60)
[2018-01-12 18:26] LABS: Bilirubin,Urine Negative (Negative); Blood,Urine Negative (Negative); Clarity,Urine Clear (Clear); Color,Urine Yellow (Yellow); Glucose,Urine (UA) 100 mg/dL (Normal); Ketones,Urine Negative (Negative); Leukocyte Esterase,Urine Negative (Negative); Nitrite,Urine Negative (Negative); Protein,Urine Negative (Neg-Trace); Specific Gravity,Urine < 1.005 (1.010-1.025); Urobilinogen,Urine Normal (Normal)
[2018-01-12 18:58] LABS: ABG Base Excess 9 mEq/L (-2 to 3); ABG HCO3 34 mEq/L (21-27); ABG Oxygen Saturation 97 % (95-98); ABG PCO2 47 mmHg (35-45); ABG PH 7.47 pH Units (7.32-7.45); ABG PO2 88 mmHg (85-104); ABG TCO2 35 mEq/L (20-26)
[2018-01-12 20:26] LABS: BUN/Creatinine Ratio 8 (6-26); Blood Urea Nitrogen 7 mg/dL (6-20); Calcium 8.5 mg/dL (8.6-10.3); Carbon Dioxide 33 mEq/L (23-29); Chloride 100 mEq/L (98-107); Glucose 127 mg/dL (70-105); Osmolality,Calculated 292 (280-300); Potassium 2.8 mEq/L (3.5-5.1); Sodium 141 mEq/L (136-145); eGFR For Non-African Americans > 60 (> 60)
[2018-01-12 20:48] LABS: BUN/Creatinine Ratio 9 (6-26); Blood Urea Nitrogen 8 mg/dL (6-20); Calcium 8.3 mg/dL (8.6-10.3); Carbon Dioxide 32 mEq/L (23-29); Chloride 101 mEq/L (98-107); Glucose 124 mg/dL (70-105); Osmolality,Calculated 294 (280-300); Potassium 2.4 mEq/L (3.5-5.1); Sodium 142 mEq/L (136-145); eGFR For Non-African Americans > 60 (> 60)
[2018-01-12 22:08] LABS: BUN/Creatinine Ratio 6 (6-26); Blood Urea Nitrogen 5 mg/dL (6-20); Carbon Dioxide 34 mEq/L (23-29); Chloride 103 mEq/L (98-107); Glucose 99 mg/dL (70-105); Osmolality,Calculated 289 (280-300); Potassium 3.5 mEq/L (3.5-5.1); Sodium 141 mEq/L (136-145); eGFR For Non-African Americans > 60 (> 60)
[2018-01-12 22:25] LABS: Bilirubin,Urine Negative (Negative); Blood,Urine Negative (Negative); Clarity,Urine Clear (Clear); Color,Urine Yellow (Yellow); Glucose,Urine (UA) Normal (Normal); Ketones,Urine Negative (Negative); Leukocyte Esterase,Urine Negative (Negative); Nitrite,Urine Negative (Negative); Protein,Urine Negative (Neg-Trace); Specific Gravity,Urine < 1.005 (1.010-1.025); Urobilinogen,Urine Normal (Normal)
[2018-01-12 22:29] LABS: Bacteria,Urine None Seen per hpf (None-Few); Hyaline Casts,Urine None Seen per lpf (None-Few); RBC,Urine 0-3 per hpf (0-3); Squamous Epithelial Cell,Urine Many per lpf (None-Few); WBC,Urine 0-3 per hpf (0-3)
--- NOTE | 2018-01-12 22:33 | Nephrology Progress Note ---
Date of Encounter: 01/12/18 Time of Encounter: 09:30 - Assessment and Plan (1) Intentional aspirin overdose Current Visit: Yes Status: Acute Aspirin level is now undetectable. Ok to discontinue dialysis catheter if lab draws are no longer needed. Will sign off. Call if questions. Qualifiers: Encounter type: initial encounter Qualified Code(s): T39.012A - Poisoning by aspirin, intentional self-harm, initial encounter (2) Hypokalemia Current Visit: Yes Status: Acute Replace potassium as needed. Subjective Principal diagnosis: Suicide attempt Interval history: Patient seen. No new complaint. Objective - Vital Signs Vital signs: Vital Signs Temp Pulse Resp BP Pulse Ox 01/12/18 19:27 98.1 F 76 16 105/66 98 01/12/18 16:30 97.8 F 70 15 105/66 98 01/12/18 12:00 97.7 F 88 16 103/70 98 01/12/18 07:45 97.8 F 87 14 99/68 99 01/12/18 04:05 98.1 F 87 16 116/66 98 01/11/18 23:35 98.5 F 108 14 105/65 98 Intake and Output 01/12/18 01/12/18 01/12/18 07:59 15:59 23:59 Intake Total 1540 / 1540 1330 / 1330 Output Total 900 / 900 200 / 200 1200 / 1200 Balance -900 / -900 1340 / 1340 130 / 130 Intake: IV Fluids 1300 / 1300 1150 / 1150 Sodium Bicarbonate 150 MEQ In 1000 / 1000 1150 / 1150 Dextrose 5% 1,000 ML @ 200 mls/ hr IVC .Q5H45M [facility]GR[facility] Rx#: [id number] Potassium Chloride 10 mEq/100mL 300 / 300 10 meq In 100 ml @ 100 mls/hr IVPB Q1H [facility]GR[facility] Rx#:[id number] Oral 240 / 240 180 / 180 Output: Urine 900 / 900 200 / 200 1200 / 1200 Other: Meal NPO for breakfast Lunch Dinner # Voids 1 1 1 # Bowel Movements 0 Weight 51.3 kg Patient Weight 01/12/18 23:59 Weight 51.3 kg - General Appearance General appearance: Present: well-developed, well-nourished EENT: Present: ATNC Neurologic: Present: alert and oriented x3 Psychiatric: Present: mood/affect appropriate - Lab 01/12/18 06:02 01/12/18 21:39 Most recent lab results ABG pH 7.47 pH Units (7.32-7.45) H 01/12/18 18:55 ABG pCO2 47 mmHg (35-45) H 01/12/18 18:55 ABG pO2 88 mmHg (85-104) 01/12/18 18:55 ABG HCO3 34 mEq/L (21-27) H 01/12/18 18:55 ABG O2 Saturation 97 % (95-98) 01/12/18 18:55 Calcium 9.0 mg/dL (8.6-10.3) 01/12/18 21:39 Consult Discharge Plan - Plan Referrals: Sukhwinder Loco DO [Primary Care Provider] -
[2018-01-13] MEDS: Ondansetron 4 MG/2 ML VIAL IVP SCH ×4 (00:59→15:07)
[2018-01-13] MEDS: *HR* Promethazine 25 MG/ML VIAL IVP PRN (04:21)
[2018-01-13 04:58] LABS: Basophils % 0.9 %; Eosinophils % 0.9 %; Hematocrit 37.5 % (35.3-44.9); Hemoglobin 12.1 g/dL (11.5-15.4); Immature Granulocytes % 0.4 % (0-4); Lymphocytes # 1.2 K/mcL (0.6-4.6); Lymphocytes % 26.7 %; Mean Corpuscular HGB Conc 32.3 g/dL (31.6-35.5); Mean Corpuscular Hemoglobin 30.6 pg (28.0-33.3); Mean Corpuscular Volume 94.9 fL (83.0-100.0); Mean Platelet Volume 10.5 fL (9.4-12.4); Monocytes # 0.5 K/mcL (0.0-1.3); Neutrophils # 2.8 K/mcL (1.6-8.9); Platelet Count 210 K/mcL (140-400); Red Blood Count 3.95 M/mcL (3.82-4.97); Red Cell Distribution Width 13.2 % (11.5-14.5); Segmented Neutrophils % 61.1 %
[2018-01-13 05:18] LABS: BUN/Creatinine Ratio 6 (6-26); Blood Urea Nitrogen 6 mg/dL (6-20); Carbon Dioxide 31 mEq/L (23-29); Chloride 103 mEq/L (98-107); Glucose 99 mg/dL (70-105); Osmolality,Calculated 288 (280-300); Potassium 3.4 mEq/L (3.5-5.1); Sodium 140 mEq/L (136-145); eGFR For Non-African Americans > 60 (> 60)
[2018-01-13] MEDS ORDERED: *HR* LORazepam 1 MG TABLET PO ONE (05:35)
[2018-01-13] MEDS: *HR* Enoxaparin 40 MG/0.4 ML SYRINGE SQ SCH (05:42)
[2018-01-13] MEDS ORDERED: Patient Taking Own Medication 1 EACH PO SCH ×2 (10:00→21:00)
--- NOTE | 2018-01-13 10:20 | Discharge Summary ---
Date of Encounter: 01/13/18 Time of Encounter: 10:15 - Discharge Diagnosis (1) Intentional aspirin overdose Priority: Primary Status: Resolved Qualifiers: Encounter type: initial encounter Qualified Code(s): T39.012A - Poisoning by aspirin, intentional self-harm, initial encounter (2) Hypokalemia Priority: Secondary Status: Acute (3) Depression Priority: Secondary Status: Chronic Qualifiers: Depression Type: major depressive disorder Major depression recurrence: single episode Active/Remission status: remission status unspecified Qualified Code(s): F32.9 - Major depressive disorder, single episode, unspecified (4) Suicidal overdose Priority: Secondary Status: Suspected Qualifiers: Encounter type: initial encounter Qualified Code(s): T50.902A - Poisoning by unspecified drugs, medicaments and biological substances, intentional self- harm, initial encounter Hospital course: Ms. Ken is a 42 year old female with history of depression no other significant medical problems presented after, took 100 pills of aspirin 325 and 10 pills of Ambien. About 4 hours later she presented to ER. Patient was having some ringing in her ears she is awake and alert. Aspirin level is 68 which is twice the upper limit of normal and Nephrology has been consult. She had normal ABG, sitter was placed in patient's room on admission. Per protocol patient was placed on bicarb drip, replacing potassium as needed, serial BMP, salycilate levels, and urine pH were monitored. These normalized with treatment. ASA level was now negative. Tinnitus gradually improving, and now near resolved. She was medically stable for discharge. Psychiatry evaluated patient and will be transferred to upon discharge from this floor. - Time Spent with Patient Total time spent providing and/or coordinating discharge services: - Discharge Medications Home Medications: Metformin HCl [Metformin HCl ER] 500 mg PO QPM 01/11/18 [History] Naltrexone HCl/Bupropion HCl [Contrave ER 8-90 mg Tablet] 1 each PO DAILY [History] Sertraline [Zoloft] 50 mg PO DAILY 01/11/18 [History] Suvorexant [Belsomra] 20 mg PO HS 01/11/18 [History] Tizanidine HCl 4 mg PO TID PRN 01/11/18 [History] Allergies/Adverse Reactions: 3 Allergy/AdvReac Type Severity Reaction Status Date / Time No Known Allergies Allergy Verified 01/11/18 12:03 Date of admission: 01/11/18 16:41 Primary care physician: Vidhi Blair Discharging clinician: Irasema Frederick - Constitutional Vitals: Temp Pulse Resp BP Pulse Ox 98.7 F 69 18 122/74 96 01/13/18 07:55 01/13/18 07:55 01/13/18 07:55 01/13/18 07:55 01/13/18 07:55 - Head Head exam: Present: atraumatic, normocephalic - Eye Eye exam: Present: PERRL, conjuntiva pink, sclera anicteric Pupils: Present: PERRL - Neck Neck exam general surgery: Present: supple, trachea midline. Absent: lymphadenopathy - Respiratory Respiratory exam: Present: CTAB. Absent: accessory muscle use, rales, rhonchi, wheezes - Cardiovascular Cardiovascular exam: Present: RRR, +S1, +S2. Absent: diastolic murmur, gallop, rubs, systolic murmur - GI/Abdominal GI/Abdominal exam: Present: normal bowel sounds, soft, no peritoneal signs. Absent: distended, tenderness - Extremities Exam Extremities exam: Present: warm, radial pulses palpable and symmetrical. Absent : calf tenderness, cyanotic, pedal edema - Neurological Exam Neurological exam: Present: CN II-XII intact, oriented X3, no focal deficits. Absent: pronater drift, facial droop, speech deficit - Skin Skin exam: Present: dry, intact - Patient Status Disposition: Transfer Psychiatric Hosp Condition: Good Functional capacity at discharge: independent ambulation Overall status at discharge: patient is back to baseline - Discharge Instructions Follow Up With: Sukhwinder Loco DO [Primary Care Provider] - 01/20/18 12:00 pm - Diet and Activity Activity: increase activity as tolerated Diet: advance to your usual diet
[2018-01-13] MEDS ORDERED: Ibuprofen 400 MG TABLET PO ONE (12:28)
[2018-01-13] MEDS: tiZANidine 4 MG TABLET PO PRN (12:45)
[2018-01-13 16:00] VITALS: BP 102/66
--- NOTE | 2018-01-14 09:58 | Electrocardiograph Report ---
[place] [id number] Test Date: 2018-01-11 Pat Name: Hallie Ken Department: 104 Room: 2N3 Gender: F [employer]ist 2Nd Shift: : 1975 Requested By: Ok Kendall Order Number: [id number] Reading MD: Ry Mcelroy DO Measurements Intervals [place] Rate: 138 P: 82 ME: 140 QRS: 7 QRSD: 71 T: 76 QT: 329 QTc: 410 Interpretive Statements SINUS TACHYCARDIA POSSIBLE RIGHT VENTRICULAR CONDUCTION DELAY NONSPECIFIC T-WAVE ABNORMALITY Electronically Signed On 01-14-2018 9:56:27 EST by Ry Mcelroy DO
== END 2018-01-13 20:27 | DRG 918 ==
LOC: 2NENU 12:02 → EMEROO 12:02 → 2NENU 17:01
PROVIDERS: ADMIT Internal Medicine; ATTEND Student in an Organized Health Care Education/Training Program

== ENCOUNTER 2022-06-10 18:53 | Observation (INO) ==
[2022-06-10 20:00] LABS: Basophils # 0.1 K/mcL (0.0-0.2); Basophils % 0.9 %; Eosinophils # 0.1 K/mcL (0.0-0.6); Eosinophils % 0.7 %; Hematocrit 40.3 % (35.3-44.9); Hemoglobin 13.4 g/dL (11.5-15.4); Immature Granulocytes % 0.3 % (0-4); Lymphocytes # 1.3 K/mcL (0.6-4.6); Lymphocytes % 17.8 %; Mean Corpuscular HGB Conc 33.3 g/dL (31.6-35.5); Mean Corpuscular Hemoglobin 30.7 pg (28.0-33.3); Mean Corpuscular Volume 92.4 fL (83.0-100.0); Mean Platelet Volume 9.7 fL (9.4-12.4); Monocytes # 0.6 K/mcL (0.0-1.3); Neutrophils # 5.1 K/mcL (1.6-8.9); Platelet Count 274 K/mcL (140-400); Red Blood Count 4.36 M/mcL (3.82-4.97); Red Cell Distribution Width 12.5 % (11.5-14.5); Segmented Neutrophils % 72.3 %
[2022-06-10 20:23] LABS: BUN/Creatinine Ratio 16 (6-26); Blood Urea Nitrogen 15 mg/dL (6-20); Calcium 9.6 mg/dL (8.6-10.3); Carbon Dioxide 30 mEq/L (23-29); Chloride 100 mEq/L (98-107); Glucose 97 mg/dL (70-105); Osmolality,Calculated 285 (280-300); Potassium 3.8 mEq/L (3.5-5.1); Sodium 137 mEq/L (136-145); Troponin I < 0.03 ng/mL (< 0.04); eGFR For African Americans > 60 (> 60); eGFR For Non-African Americans > 60 (> 60)
[2022-06-10] MEDS ORDERED: Aspirin 325 MG TABLET PO ONE (20:58)
[2022-06-10 21:27] LABS: Amphetamine Screen,Urine Positive ng/mL (Cutoff=1000); Barbiturate Screen,Urine Negative ng/mL (Cutoff=200); Benzodiazepines Screen,Urine Negative ng/mL (Cutoff=200); Cannabinoid Screen,Urine Negative ng/mL (Cutoff = 50); Cocaine Screen,Urine Negative ng/mL (Cutoff= 300); Opiate Screen,Urine Negative ng/mL (Cutoff=300); Phencyclidine Screen,Urine Negative ng/mL (Cutoff=25)
[2022-06-11] MEDS ORDERED: Perflutren Lipid Microsphere 1.3 ML in 0.9 % Sodium Chloride 8.7 ML IVP PRN (01:07)
[2022-06-11] MEDS ORDERED: tiZANidine 4 MG TABLET PO PRN (01:28)
[2022-06-11] MEDS ORDERED: Acetaminophen 325 MG TABLET PO PRN (01:30)
[2022-06-11] MEDS ORDERED: Ondansetron 4 MG/2 ML VIAL IVP PRN (01:30)
[2022-06-11] MEDS ORDERED: Naloxone 0.4 MG/ML INJ IVP PRN (01:30)
[2022-06-11 01:38] LABS: Bilirubin,Urine Negative (Negative); Blood,Urine Negative (Negative); Clarity,Urine Clear (Clear); Color,Urine Light-Yellow (Yellow); Glucose,Urine (UA) Normal (Normal); Ketones,Urine Negative (Negative); Leukocyte Esterase,Urine Negative (Negative); Nitrite,Urine Negative (Negative); PH,Urine 6.5 pH Units (5.0-8.0); Protein,Urine Negative (Neg-Trace); Specific Gravity,Urine 1.009 (1.010-1.025); Urobilinogen,Urine Normal (Normal)
[2022-06-11 03:27] LABS: Hematocrit 38.4 % (35.3-44.9); Hemoglobin 12.6 g/dL (11.5-15.4); Mean Corpuscular HGB Conc 32.8 g/dL (31.6-35.5); Mean Corpuscular Hemoglobin 30.3 pg (28.0-33.3); Mean Corpuscular Volume 92.3 fL (83.0-100.0); Mean Platelet Volume 9.9 fL (9.4-12.4); Platelet Count 261 K/mcL (140-400); Red Blood Count 4.16 M/mcL (3.82-4.97); Red Cell Distribution Width 12.6 % (11.5-14.5); White Blood Count 5.3 K/mcL (4.3-11.1)
[2022-06-11 04:03] LABS: BUN/Creatinine Ratio 18 (6-26); Blood Urea Nitrogen 16 mg/dL (6-20); Calcium 9.5 mg/dL (8.6-10.3); Carbon Dioxide 26 mEq/L (23-29); Chloride 102 mEq/L (98-107); Chol/HDL Ratio 3.3 (0-4.9); Cholesterol 193 mg/dL (< 200); Glucose 108 mg/dL (70-105); HDL Cholesterol 58 mg/dL (40-59); LDL Cholesterol,Calculated 121 mg/dL (< 100); Magnesium 2.5 mg/dL (1.6-2.6); Osmolality,Calculated 288 (280-300); Potassium 3.9 mEq/L (3.5-5.1); Sodium 138 mEq/L (136-145); Triglycerides 69 mg/dL (< 150); Troponin I < 0.03 ng/mL (< 0.04); eGFR For African Americans > 60 (> 60); eGFR For Non-African Americans > 60 (> 60)
[2022-06-11 04:20] LABS: Estimated Average Glucose 120 mg/dl; Hemoglobin A1C 5.8 %
[2022-06-11] MEDS ORDERED: *HR* Heparin 5,000 UNIT/ML VIAL SQ SCH (06:00)
[2022-06-11] MEDS ORDERED: Regadenoson 0.4 MG/5 ML SYRINGE IVP ONE (07:09)
[2022-06-11] MEDS ORDERED: Aspirin Enteric Coated 81 MG Tablet PO SCH (09:00)
[2022-06-11] MEDS ORDERED: VYVANSE 40 MG PO SCH (09:00)
[2022-06-11 15:23] VITALS: BP 104/65; PULSE 97; TEMP 97.7; O2SAT 97
== END 2022-06-11 16:44 | disposition home or self-care (01) ==
LOC: 3ANU 18:53 → EMEROOARM 18:53 → SUATTDRO 21:05 → 3ANU 21:52
PROVIDERS: ADMIT Student in an Organized Health Care Education/Training Program; ATTEND Internal Medicine